=== PATIENT | male | born 1975 | race Caucasian/White ===

== ENCOUNTER 2017-09-04 07:54 | Emergency (ER) | payer BC, SELFPAY ==
[2017-09-04 07:55] VITALS: BP 160/96; PULSE 62; RESP 18; TEMP 36.4; O2SAT 96; BMI 33.1
--- NOTE | 2017-09-04 08:06 | CT_ITS ---
STUDY: CT ABDOMEN AND PELVIS WITH CONTRAST REASON FOR EXAM: Male, 42 years old. Right abdomen pain, nausea and diarrhea x10 days. RADIATION DOSAGE (If Supplied By Facility): CTDIvol = ( 18.31 ) mGy, DLP = ( 1315.35 ) mGycm TECHNIQUE: Transaxial images were obtained from the dome of the diaphragm to the symphysis pubis without oral contrast. 100CC ml of Isovue 300 contrast was administered. Sagittal and coronal images were reconstructed. Individualized dose optimization techniques were used for this CT. COMPARISON: April 20, 2016. FINDINGS: The visualized lung bases are unremarkable. The visualized portions of the heart are within normal limits. Normal liver. Normal gallbladder and extrahepatic biliary system. Normal spleen. Normal pancreas. Normal bilateral adrenal glands. Normal right kidney. Normal left kidney. Normal visualized stomach. Normal small intestine. Normal colon. The appendix is visualized and appears normal. There is no free fluid. There is no free air. Normal abdominal aorta except for scattered plaque throughout the aortoiliac system. Normal inferior vena cava. Normal retroperitoneum. Normal urinary bladder. Prostatic calcifications are again identified. Normal abdominal wall. There is no acute osseous abnormality. There is no suspicious lytic or blastic osseous pathology. CT/Abdomen/Pelvis WITH Contrast IMPRESSION: Atherosclerotic peripheral vascular disease. No demonstrated aneurysm. Prostatic calcifications. The appendix is well-visualized and appears normal. No evidence of obstruction. No free air. No free fluid. No evident mass or mass effect. Electronically Signed: Nii Miranda MD at 10:30 EDT , Service support ,
--- NOTE | 2017-09-04 08:11 | ED.VISSUMM ---
- ER Visit Summary Date of Service: 09/04/17 Chief Complaint: Abdominal pain History of Present Illness: The patient is a 42 M who presents with abdominal pain that started 10 days ago. He states his stool was soft to mushy for 2 days. He reported loose brown watery diarrhea on day 3 of his abdominal pain. He states yesterday his stool was very soft and mushy. He has noted mucus. There is a family history of ulcerative colitis. He does complain of nausea without vomiting. He localizes the abdominal pain to the right side. There is no history of diverticulosis or diverticulitis. He denies any food intolerance. He denies history of renal ureterolithiasis. He denies dysuria, frequency, urgency or hematuria. He reports decreased urine output. He does report increased thirst. He has had minimal intake since the onset of his illness. He denies weight loss. apparently has something similar. He reports he is not compliant with his medications. He states he does not take his medication because of cost. He denies fever, chills or night sweats. Patient denies any ocular, visual or auditory symptoms. He denies chest discomfort, orthopnea PND. He denies shortness of breath, dyspnea on exertion or cough. He did report runny nose 2 weeks ago. He does have history of allergic rhinitis. He denies sore throat or ear discomfort. There is no history of trauma. He states food makes his pain worse. He has no other complaints. Physical Examination: Vital signs remarkable for blood pressure 160/95. BMI is 33.1. Head is atraumatic normocephalic. Pupils are equal round reactive. Extraocular muscles are intact. TMs are pearly white with landmarks noted. Nares patent with no drainage. Posterior pharynx without erythema or exudate. Uvula is midline. Mucosa is dry. There is no dysphonia or dysphasia. Trachea is midline. There is no stridor with auscultation of the neck. Heart is regular without murmur, gallop or rub. S1 and S2 are normal. Lungs are clear to auscultation with good movement of air bilaterally. Abdomen slightly distended tympanitic with decreased bowel sounds. He does have guarding on the right side. Negative Mao sign. No skin lesions noted. There is no CVA tenderness noted. There is no evidence of umbilical or inguinal hernia. Test Results: CBC and electrolyte panel are unremarkable. CT of the abdomen and pelvis with contrast reveals enlarged prostate and atherosclerotic disease. Emergency Department Course and Treatment: IV was established and he will receive IV fluids since clinically he is dehydrated. To evaluate his right-sided abdominal pain with 10 days of diarrhea with mucus will obtain CBC electronic panel. Pending results may obtain CT of the abdomen. Treatment Plan: Symptomatic treatment Disposition: Discharged home with appropriate home-going instructions Impression: Abdominal pain secondary to enteritis Mild dehydration History of hypercholesterolemia History of migraine headaches This note was generated with Track dictation software. It may contain incorrect words, spelling, and punctuation that were not noted in review of the chart prior to signing ED Disposition - Plan for ED Patient: Disposition: Home or Assisted Living Chief Complaint: Abd Pain Instructions: ED Gastroenteritis Non Infec Referrals: Pardeep Lomas DO [Primary Care Provider] - 3-5 Days if not improving
[2017-09-04] MEDS: 0.9% Normal Saline 1,000 ML 1000 ML IV (08:20)
[2017-09-04 08:29] LABS: Absolute Lymphocyte Count 2.52 X10^3/ul (0.83-4.51); Absolute Neutrophil Count 3.4 X10^3/uL (2.0-7.7); Basophil# 0.02 X10^3/uL; Basophil% 0.3 % (0-1); Eosinophil# 0.12 X10^3/uL; Eosinophils% 1.8 % (0-5); Hematocrit 45.5 % (40-54); Hemoglobin 15.4 g/dl (13.0-16.5); Lymphocyte # 2.52 X10^3/ul (4.0); Lymphocyte % 38.4 % (19-41); Mean Corp Hgb Conc 33.8 g/gl (32-36); Mean Corpuscular Hgb 29.1 pg (27.0-32.0); Mean Corpuscular Volume 85.8 fL (80-94); Mean Platelet Vol. 10.3 fl (6.2-12.0); Monocyte# 0.47 X10^3/uL; Monocyte% 7.2 % (0-10); Neutrophil # 3.41 X10^3/uL (2.7-7.7); POSITIVE COUNT NO; POSITIVE DIFFERENTIAL NO; POSITIVE MORPHOLOGY NO; Platelet Count 202 K/mm3 (150-450); RBC Distribution Width CV 13.4 % (11.6-14.6); RBC Distribution Width SD 42.2 fl (35.1-43.9); White Blood Count 6.6 K/mm3 (4.4-11.0)
[2017-09-04 08:49] LABS: Anion Gap 6 (5-15); BUN 16 mg/dL (7-18); BUN/Creat Ratio 15.1 RATIO (10-20); Calcium,Total 8.4 mg/dL (8.5-10.1); Chloride 109 mmol/L (98-107); Creatinine, Serum 1.06 mg/dL (0.70-1.30); EST Glomerular Filtration Rate 81 mL/min (>60); Est Glom Filt Rate - Afr Amer 98 mL/min (>60); Estimated Creatinine Clearance 101.55 ml/min; Glucose 104 mg/dL (74-106); Potassium 4.5 mmol/L (3.5-5.1); Sodium Level 140 mmol/L (136-145)
[2017-09-04 10:35] VITALS: BP 138/71; PULSE 62; RESP 15; O2SAT 97
[2017-09-04 10:52] VITALS: BP 127/64; PULSE 72; RESP 16; O2SAT 97
== END 2017-09-04 10:53 | disposition home or self-care (01) ==
PROVIDERS: Emergency Provider Emergency Medicine; Family Provider Student in an Organized Health Care Education/Training Program; PCP Student in an Organized Health Care Education/Training Program
DX: K52.9 Noninfective gastroenteritis and colitis, unspecified (principal); E86.0 Dehydration; E78.00 Pure hypercholesterolemia, unspecified; G43.909 Migraine, unspecified, not intractable, without status migrainosus; J30.9 Allergic rhinitis, unspecified; Z87.891 Personal history of nicotine dependence
CPT/HCPCS: 74177; 80048; 85025; 96360; 96361; 99283; J7030; Q9967; A4216